=== PATIENT | female | born 2000 | race African-American/Black ===

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

== ENCOUNTER 2021-02-10 12:18 | Emergency (ER) | payer MEDICAID ==
[~2021-02-10] VITALS: Ht 167.6 cm; Wt 60.0 kg
[2021-02-10 13:38] VITALS: BP 98/61
== END 2021-02-10 14:08 | disposition home or self-care (01) ==
LOC: ER 13:43
DX: Z13.89 Encounter for screening for other disorder (principal); L98.8 Other specified disorders of the skin and subcutaneous tissue
CPT/HCPCS: 99281

== ENCOUNTER 2022-03-27 11:11 | Emergency (ER) | payer MEDICAID ==
[~2022-03-27] VITALS: Ht 167.6 cm; Wt 61.0 kg
[2022-03-27] MEDS ORDERED: TC1U15 TP (14:48)
[2022-03-27] MEDS ORDERED: DIPH25TA62 PO (14:48)
[2022-03-27 15:15] VITALS: BP 126/64
== END 2022-03-27 15:16 | disposition home or self-care (01) ==
LOC: ER 11:11
DX: J06.9 Acute upper respiratory infection, unspecified (principal); S80.869A Insect bite (nonvenomous), unspecified lower leg, initial encounter; W57.XXXA Bitten or stung by nonvenomous insect and other nonvenomous arthropods, initial encounter; Y93.9 Activity, unspecified; Y92.9 Unspecified place or not applicable; Z20.822 Contact with and (suspected) exposure to COVID-19
CPT/HCPCS: 87426; 99283; C9803

== ENCOUNTER 2022-12-22 00:13 | Emergency (ER) | payer MEDICAID ==
[~2022-12-22] VITALS: Ht 165.1 cm; Wt 63.0 kg
[~2022-12-22 00:13] MED LIST: DIPH25TA62 PO; TC1U15 TP
[2022-12-22 00:54] VITALS: BP 124/69
[2022-12-22] MEDS ORDERED: FLUT9.9S BOTHNSTRLS (00:56)
== END 2022-12-22 01:17 | disposition home or self-care (01) ==
LOC: ER 00:13
DX: R05.9 Cough, unspecified (principal); R09.81 Nasal congestion
CPT/HCPCS: 99281; 99283

== ENCOUNTER 2023-04-12 11:33 | Emergency (ER) | payer MEDICAID ==
[~2023-04-12] VITALS: Ht 167.6 cm; Wt 78.0 kg
[~2023-04-12 11:33] MED LIST changes: +FLUT9.9S BOTHNSTRLS
[2023-04-12 11:50] VITALS: BP 124/74; O2SAT 99
[2023-04-12 12:49] VITALS: PULSE 80; RESP 16; TEMP 98.6
== END 2023-04-12 12:56 | disposition home or self-care (01) ==
LOC: ER 11:39
DX: Z00.00 Encounter for general adult medical examination without abnormal findings (principal)
CPT/HCPCS: 99281

== ENCOUNTER 2023-07-28 22:44 | Emergency (ER) | payer MEDICAID ==
[~2023-07-28] VITALS: Ht 167.6 cm; Wt 76.0 kg
[2023-07-28 23:14] VITALS: BP 124/86; PULSE 84; RESP 16; TEMP 98.1; O2SAT 95
[2023-07-28] MEDS ORDERED: BACITRACIN ZINC OINT UDPKT TOP NR (23:30)
[2023-07-28] MEDS ORDERED: BACITRACIN 14GM TUBE TOP ONE (23:30)
== END 2023-07-28 23:49 | disposition home or self-care (01) ==
LOC: ER 22:44
DX: S41.111D Laceration without foreign body of right upper arm, subsequent encounter (principal); X58.XXXD Exposure to other specified factors, subsequent encounter
CPT/HCPCS: 99281